=== PATIENT | female | born 1965 | race Caucasian/White ===

== ENCOUNTER → 2021-03-25 | Outpatient (CLI) | payer OTHER ==
[~2021-03-25] MED LIST: BENTYL 20MG TAB20 MG PO; COZAAR50 MG PO; MICROZIDE12.5 MG PO; TRINATE TABLET1 EACH PO; ZOFRAN ODT 4 MG4 MG PO
== END ==
LOC: MAMO 08-23 10:30
DX: Z12.31 Encounter for screening mammogram for malignant neoplasm of breast (principal)
CPT/HCPCS: 77063; 77067

== ENCOUNTER → 2022-01-21 | Outpatient (CLI) | payer OTHER | LOC: KOH-I 12-31 10:30 | DX: F17.210 Nicotine dependence, cigarettes, uncomplicated (principal) | CPT/HCPCS: 71271 ==